=== PATIENT | male | born 1955 | race Caucasian/White ===

== ENCOUNTER 2022-12-25 20:56 | Emergency (ER) | payer OTHER, SELFPAY ==
[2022-12-25] VITALS (7 sets, daily range): BP systolic 112–172; BP diastolic 63–82; PULSE 63–65; RESP 18; TEMP 36.6–37.3; O2SAT 96–98; BMI 40.9
--- NOTE | 2022-12-25 21:24 | ED.GENADULT ---
HPI - General Adult General Time Seen by Provider: 21:24 Date Seen: 12/25/22 Chief complaint: Abdominal Pain Stated complaint: Abdominal Pain Time Seen by Provider: 12/25/22 21:16 Source: patient and RN notes reviewed Mode of arrival: ambulatory Limitations: no limitations History of Present Illness HPI narrative: Patient is a 67-year-old male coming in with right-sided abdominal pain. He initially had an episode on Saturday that lasted about 90 minutes, went away without any intervention. Saturday and Saturday were fine. Around 2:00 p.m. the pain started coming back. Feels that the right abdomen feels like it radiates towards the center of his abdomen. He has a remote history of a varicocele repair but no abdominal surgery ever. He did not feel like eating dinner but otherwise has noted no change in appetite. No nausea vomiting, not nauseated now. He has maybe been going a little less often as far stooling but really does not note any diarrhea or constipation, no blood in stool. He believes he is probably due for his colonoscopy, maybe a little overdue, had polyps with his 1st 1 and is on a 5 year interval. He has noted no urinary changes. A couple weeks ago his urine was dark but he feels he just was not drinking enough. There has been no hematuria. He actually cancel a meeting this evening because of the pain. It has been there and just seems to be getting more intense since earlier. He has not tried anything for it. He has never had a history of kidney stones. Related Data Previous Rx's Medication Instructions Recorded tamsulosin 0.4 mg capsule (Flomax) 0.4 mg PO DAILY #14 caps 12/25/22 Allergies Allergy/AdvReac Type Severity Reaction Status Date / Time No Known Drug Allergies Allergy Verified 12/25/22 21:06 Review of Systems Status of ROS: Reports: 10 or more systems reviewed and unremarkable except as noted in History and below PFSH [facility] Social History Smoking Status: Never smoker Do you use any of these nicotine containing products: None How often do you have a drink containing alcohol: monthly or less AUDIT-C Alcohol total score: 1 Non-prescribed substance use: denies use Exam Const: Vital Signs, click to edit/add: Vital Signs - 24 hr 12/25/22 21:01 12/25/22 21:46 Temperature 99.2 F 99.2 F Pulse Rate [Right Pulse Oximeter] 65 Respiratory Rate 18 Blood Pressure [Ri ght Upper Arm] 172/82 H Pulse Oximetry 98 Oxygen Delivery Me thod Room Air Documenting provider has reviewed patient's vital signs: yes Common normals: no apparent distress, oriented x3, no limitations, healthy appearing, alert and well nourished General appearance: cooperative, comfortable, well kempt and well developed Nutritional appearance: overweight HENMT: Common normals: normocephalic, head/scalp atraumatic, hearing grossly normal bilaterally, external nose normal, nasal mucous membranes and turbinates normal, moist oral mucous membranes, oropharynx normal, dentition normal and gingiva normal Head and scalp: normocephalic and atraumatic Nose: external nose normal and nasal mucous membranes and turbinates normal Eye: Common normals: PERRL, EOMs intact bilaterally, conjunctivae normal and no scleral icterus Conjunctiva: conjunctiva(e) normal Pupil: PERRL Neck & C-Spine: Common normals: full ROM, no lymphadenopathy, supple, no meningeal signs, no JVD and thyroid normal Thyroid: thyroid normal Resp: Common normals: normal respiratory effort, no retractions, no use of accessory muscles and clear to auscultation bilaterally Auscultation: clear to auscultation bilaterally Cardio: Common normals: no JVD, regular rate, regular rhythm, S1 normal heart sound, S2 normal heart sound, no gallops, no clicks, no murmurs and no rub Rate: regular rate Rhythm: regular rhythm Heart sounds: S1 normal and S2 normal GI: Common normals: Normal to inspection, nondistended, normoactive bowel sounds present, soft to palpation, non-tender, no hepatosplenomegaly and no masses Palpation: soft and no hepatosplenomegaly Other: Patient states that may be palpation along the right lateral upper abdominal wall more posterior but overall feels that my palpation of his abdomen and lateral abdominal salmon does not really change the pain. : Common normals: no CVA tenderness Bladder/kidney exam: no CVA tenderness Back & Pelvis: Common normals: no CVA tenderness Extremity: Common normals: no calf tenderness and no pedal edema Neuro: Common normals: oriented x3 Sensorium/orientation: alert Meningeal signs: no meningeal signs Psych: Appearance: well kempt Course Course Hospital Course: Reviewed pain management with patient, will proceed with Toradol 15 mg IV and a L of IV fluids. We will get full complement of labs as well as a urinalysis. We will start with CT abdomen pelvis noncontrast. Kidney stones, possible bowel pathology such as appendicitis maybe right-sided diverticulitis are considered. Will consider acute surgical abdomen, other abdominal etiologies via labs in the CT. We will see how he response to the Toradol. Reevaluation(s) Reevaluation #1: Have reviewed and given the patient a copy of his CT report. He has a 2 mm kidney stone in the right mid ureter. We discussed expectant management. Am going to give him a dose of Flomax 0.4 mg here tonight before discharge. We discussed treatment of the kidney stone. The Toradol has taken away his pain completely. On review of his kidney functions, would not want him taking the Toradol 4 times a day but do think he could probably tolerate up to 3 times a day. Time: 22:55 Vital Signs Vital signs: Initial Vital Signs Temperature 99.2 F 12/25/22 21:01 Temperature Source Temporal Artery Scan 12/25/22 21:01 Pulse Rate 65 12/25/22 21:01 Respiratory Rate 18 12/25/22 21:01 Blood Pressure 172/82 H 12/25/22 21:01 Blood Pressure Mean 112 12/25/22 21:01 Blood Pressure Position Sitting 12/25/22 21:01 Pulse Oximetry 98 12/25/22 21:01 Oxygen Delivery Method 12/25/22 21:01 Vital Signs Temperature 99.2 F 12/25/22 21:01 Pulse Rate 65 12/25/22 21:01 Respiratory Rate 18 12/25/22 21:01 Blood Pressure 172/82 H 12/25/22 21:01 Pulse Oximetry 98 12/25/22 21:01 Oxygen Delivery Method 12/25/22 21:01 Temperature 99.2 F 12/25/22 21:46 Pulse Rate 65 12/25/22 21:01 Respiratory Rate 18 12/25/22 21:01 Blood Pressure 172/82 H 12/25/22 21:01 Pulse Oximetry 98 12/25/22 21:01 Oxygen Delivery Method 12/25/22 21:01 Medical Decision Making Lab Data Lab results reviewed: Yes I reviewed the patient's lab results Labs: Lab Results 12/25/22 12/25/22 12/25/22 Range/Units 21:33 21:38 21:38 WBC 8.78 (4.50-11.00) K/uL RBC 5.01 (4.30-5.90) m/uL Hgb 14.3 (13.5-17.5) gm/dL Hct 42.4 (37.0-53.0) % MCV 85 (80-100) fL MCH 29 (26-34) pg MCHC 34 (32-36) gm/dL RDW Coeff of Tomy 13.4 (11.5-15.5) % Plt Count 276 (140-440) K/uL Neut % (Auto) 79.2 H (42.0-72.0) % Lymph % (Auto) 11.3 L (20-44) % [place] % (Auto) 7.6 (0.0-11.0) % Eos % (Auto) 1.7 (0.0-7.0) % Baso % (Auto) 0.1 (0.0-3.0) % Neut # (Auto) 7.00 (1.7-7.0) K/uL Lymph # (Auto) 1.00 (0.90-2.90) K/uL [place] # (Auto) 0.70 (0.00-0.90) K/UL Eos # (Auto) 0.15 (0.00-0.50) K/uL Baso # (Auto) 0.01 (0.00-0.30) K/uL Sodium 135 (135-149) mmol/L Potassium 4.2 (3.6-5.1) mmol/L Chloride 103 (96-114) mmol/L Carbon Dioxide 26 (20-32) mmol/L BUN 19 (7-30) mg/dL Creatinine 1.4 (0.5-1.5) mg/dL Estimated Creat Clear 54.32 Estimated GFR 56 ml/min Glucose 112 (60-115) mg/dL Calcium 8.7 (8.4-10.6) mg/dL Total Bilirubin 0.7 (0.1-1.5) mg/dL AST 30 (12-35) U/L ALT 36 (4-50) U/L Alkaline Phosphatase 69 (40-150) U/L C-Reactive Protein 1.9 H (0.5-1.0) mg/dL Total Protein 7.4 (6.0-8.3) g/dL Albumin 4.2 (3.3-5.0) g/dL Lipase 42 (23-300) U/L Urine Color Yellow (Yellow) Urine Appearance Clear (Clear) Urine pH 7.0 (5.0-8.5) Ur Specific [place] 1.020 (1.000-1.030) Urine Protein Negative (Negative) Urine Glucose (UA) Negative (Negative) Urine Ketones Negative (Negative) Urine Blood Negative (Negative) Urine Nitrite Negative (Negative) Urine Bilirubin Negative (Negative) Urine Urobilinogen 0.2 (0.2-1.0) Ur Leukocyte Esterase Negative (Negative) Urine RBC 0-2 (0-2) Urine WBC 0-2 (0-5) Ur Squamous Epith Cells None (None-Few) Urine Bacteria None (None) Imaging Data CT scan - abdomen: Attestation: I have reviewed the pertinent imaging results. My impression: I believe I see some hydronephrosis and a stone in the right ureter. Will await Radiology over-read on this CT. Radiologist's impression: Patient: CHRISTOPH WEBB Facility:?[facility] Patient ID:?[id number] Site Patient ID:?[id number]. Site :?[id number] Study:?CT Abdomen/Pelvis W/O-12/25/2022 10:33:30 PM Ordering Physician:Muriel Almendarez Final Report: INDICATION: Intermittent right-sided abdominal pain.. TECHNIQUE: CT abdomen and pelvis without contrast. COMPARISON: None. FINDINGS: Lower chest: The visualized lower lungs are aerated. No pleural or pericardial effusion. ABDOMEN: Liver: Normal attenuation. Gallbladder and biliary: Normal gallbladder without radiopaque stone. Normal caliber bile ducts. Spleen: Normal size and attenuation. Pancreas: The noncontrast pancreas is homogeneous in attenuation without peripancreatic inflammatory changes or ductal dilatation. Adrenal glands: Normal adrenal glands. Kidneys and ureters: Mild right-sided hydroureteronephrosis secondary to a 2 millimeter stone within the mid right ureter. No left-sided hydroureteronephrosis or nephrolithiasis. GI tract: The stomach is relatively decompressed. Normal caliber small and large bowel loops. Normal appendix. Vascular structures: Normal caliber abdominal aorta. Lymph nodes: No lymphadenopathy in the abdomen or pelvis by size criteria. Peritoneum: No free air, free fluid, or focal drainable fluid collection. PELVIS: Genitourinary system: Urinary bladder is decompressed. Normal size prostate. Multiple adjacent calcified pelvic phleboliths. Rectal prostatic calcified granuloma measuring 27 millimeters. SKELETAL STRUCTURES AND SOFT TISSUES: Vertebral body hemangioma. No suspicious lytic or blastic lesions. IMPRESSION: Mild right-sided hydroureteronephrosis secondary to a 2 millimeter stone within the mid right ureter. Please note that all CT scans at this facility use dose modulation, iterative reconstruction, and/or weight-based dosing when appropriate to reduce radiation dose to as low as reasonably achievable. Dictated by Shady Mahoney MD @ 12/25/2022 10:43:31 PM (Electronic Signature) Critical Care Time Critical Care Time Critical Care Time: No Discharge Plan Discharge Clinical Impression: Renal colic on right side Patient Disposition: Home, Self-Care Condition: Stable Instructions: Kidney Stones (ED), Renal Colic (ED) Additional Instructions: Schedule clinic follow-up within 1-2 weeks. If the stone is not passing, may need to be referred to Urology which can be done through your primary clinic but is unlikely with a 2 mm stone. Drink plenty of fluids, including water, for goal of keeping urine clear looking. Tylenol a 1000 mg 3 times a day baseline for pain. Take Flomax daily until the stone has passed. Toradol 10 mg up to 3 times a day if needed for extra pain control. Should your pain management be inadequate, develop vomiting, or have fever develop in the context of a kidney stone, need to return to the ER for further evaluation. Activity Level: Activity as Tolerated Prescriptions: New tamsulosin [Flomax] 0.4 mg capsule 0.4 mg PO DAILY Qty: 14 0RF Follow Up/Referrals: Miyl Borja MD [Primary Care Provider] - Stand Alone Forms: [employer] Info Instructions
--- NOTE | 2022-12-25 21:32 | CRLHL7_ITS ---
For Patients: As a result of the Century Cures Act, medical imaging exams and procedure reports are released immediately into your electronic medical record. You may view this report before your referring provider. If you have questions, please contact your health care provider. INDICATION: Intermittent right-sided abdominal pain.. TECHNIQUE: CT abdomen and pelvis without contrast. COMPARISON: None. FINDINGS: Lower chest: The visualized lower lungs are aerated. No pleural or pericardial effusion. ABDOMEN: Liver: Normal attenuation. Gallbladder and biliary: Normal gallbladder without radiopaque stone. Normal caliber bile ducts. Spleen: Normal size and attenuation. Pancreas: The noncontrast pancreas is homogeneous in attenuation without peripancreatic inflammatory changes or ductal dilatation. Adrenal glands: Normal adrenal glands. Kidneys and ureters: Mild right-sided hydroureteronephrosis secondary to a 2 millimeter stone within the mid right ureter. No left-sided hydroureteronephrosis or nephrolithiasis. GI tract: The stomach is relatively decompressed. Normal caliber small and large bowel loops. Normal appendix. Vascular structures: Normal caliber abdominal aorta. Lymph nodes: No lymphadenopathy in the abdomen or pelvis by size criteria. Peritoneum: No free air, free fluid, or focal drainable fluid collection. PELVIS: Genitourinary system: Urinary bladder is decompressed. Normal size prostate. Multiple adjacent calcified pelvic phleboliths. Rectal prostatic calcified granuloma measuring 27 millimeters. SKELETAL STRUCTURES AND SOFT TISSUES: Vertebral body hemangioma. No suspicious lytic or blastic lesions. IMPRESSION: Mild right-sided hydroureteronephrosis secondary to a 2 millimeter stone within the mid right ureter. Please note that all CT scans at this facility use dose modulation, iterative reconstruction, and/or weight-based dosing when appropriate to reduce radiation dose to as low as reasonably achievable. Dictated by Shady Mahoney MD @ 12/25/2022 10:43:31 PM (Electronically Signed)
[2022-12-25] MEDS: KETOROLAC 15 MG/ML inj IVP (21:46)
[2022-12-25] MEDS: 0.9 % SODIUM CHLORIDE 1000 ml 1,000 ML 500 ML IV (21:46)
[2022-12-25 21:51] LABS: Basophils Absolute Auto 0.01 K/uL (0.00-0.30); Basophils Percent Auto 0.1 % (0.0-3.0); Eosinophils Absolute Auto 0.15 K/uL (0.00-0.50); Eosinophils Percent Auto 1.7 % (0.0-7.0); Hematocrit 42.4 % (37.0-53.0); Hemoglobin* 14.3 gm/dL (13.5-17.5); Immature Granulocytes Abs Auto 0.01 K/uL (0.00-0.30); Immature Granulocytes Pct Auto 0.1 %; Lymphocytes Percent Auto 11.3 % (20-44); Mean Corpuscular HGB Conc 34 gm/dL (32-36); Mean Corpuscular Hemoglobin 29 pg (26-34); Mean Corpuscular Volume 85 fL (80-100); Monocytes Percent Auto 7.6 % (0.0-11.0); Neutrophils Percent Auto 79.2 % (42.0-72.0); Platelet Count* 276 K/uL (140-440); RDW Coefficient of Variation % 13.4 % (11.5-15.5); Red Blood Count 5.01 m/uL (4.30-5.90); Slide Review Reflex No; White Blood Count* 8.78 K/uL (4.50-11.00)
[2022-12-25 22:08] LABS: Albumin* 4.2 g/dL (3.3-5.0); Chloride* 103 mmol/L (96-114)
[2022-12-25 22:09] LABS: Potassium* 4.2 mmol/L (3.6-5.1); Sodium* 135 mmol/L (135-149)
[2022-12-25 22:11] LABS: Creatinine* 1.4 mg/dL (0.5-1.5); Est. Creatinine Clearance* 54.32; Estimated Glomerular Filt Rate 56 ml/min
[2022-12-25 22:12] LABS: Alanine Aminotransferase* 36 U/L (4-50); Alkaline Phosphatase* 69 U/L (40-150); Aspartate Amino Transferase* 30 U/L (12-35); Bilirubin Total* 0.7 mg/dL (0.1-1.5); Blood Urea Nitrogen* 19 mg/dL (7-30); Calcium* 8.7 mg/dL (8.4-10.6); Carbon Dioxide* 26 mmol/L (20-32); Glucose* 112 mg/dL (60-115); Lipase* 42 U/L (23-300); Total Protein* 7.4 g/dL (6.0-8.3)
[2022-12-25 22:15] LABS: Appearance Urine Clear (Clear); Bilirubin Urine Negative (Negative); Blood Urine Negative (Negative); Color Urine Yellow (Yellow); Glucose Urine Negative (Negative); Ketones Urine Negative (Negative); Leukocyte Esterase Urine Negative (Negative); Nitrite Urine Negative (Negative); Protein Urine Negative (Negative); Urobilinogen Urine 0.2 (0.2-1.0)
[2022-12-25 22:17] LABS: RBC Urine 0-2 (0-2); WBC Urine 0-2 (0-5)
[2022-12-25 22:21] LABS: C Reactive Protein* 1.9 mg/dL (0.5-1.0)
[2022-12-25] MEDS: TAMSULOSIN HCL 0.4 MG CAPSULE PO (23:06)
== END 2022-12-25 23:20 | disposition home or self-care (01) ==
PROVIDERS: Emergency Provider Family Medicine; PCP Internal Medicine
DX: N23 Unspecified renal colic (principal)
CPT/HCPCS: 36415; 74176; 80053; 81001; 83690; 85025; 86140; 94761; 96374; 99284; 99285; A9270; J1885; J7030

== ENCOUNTER 2023-01-22 08:18 | Outpatient (CLI) | payer OTHER, SELFPAY ==
[2023-01-22 09:55] LABS: Cholesterol* 174 mg/dL (90-199); Glucose* 86 mg/dL (60-115); HDL Cholesterol* 59 mg/dL (>=40); LDL Cholesterol Calculated 96 mg/dL (<100); Triglycerides* 95 mg/dL (40-149)
== END 2023-01-22 08:19 | disposition home or self-care (01) ==
PROVIDERS: PCP Internal Medicine; Visit Provider Internal Medicine
DX: Z13.1 Encounter for screening for diabetes mellitus (principal); Z13.6 Encounter for screening for cardiovascular disorders
CPT/HCPCS: 80061; 82947

== ENCOUNTER 2023-02-15 09:14 | Outpatient (CLI) | payer OTHER, SELFPAY | END 2023-02-15 09:15 | disposition home or self-care (01) | PROVIDERS: PCP Internal Medicine; Visit Provider Internal Medicine | DX: Z12.11 Encounter for screening for malignant neoplasm of colon (principal); Z86.010 Personal history of colon polyps | CPT/HCPCS: 45378; J2250; J3010 ==

== ENCOUNTER 2024-07-28 08:58 | Outpatient (CLI) | payer OTHER, SELFPAY ==
--- OUTSIDE RECORDS SUMMARY | 2024-07-28 09:12 | XMS_ITS | Clinical Summary ---
Author Organization [facility] Address [place], [place] [address] Care Team Providers Care Box Toe Cementer Name Role Phone Mily Borja MD Primary Care Provider [phone]- [phone] Encounters Date Type Department Care Team Description 07/15/2024 2:30 PM CDT Ancillary Procedure [facility] [address] [place] [address] 07/15/2024 Travel 07/07/2024 Orders Only [facility] [address] [place] [address] Self, Referral <No scans attached> from Last 3 Months Immunizations Name Administration Dates Next Due Influenza, IIV4 11/30/2017 Social History Tobacco Use Types Packs/Day Years Used Date Smoking Tobacco: Never Assessed Sex and Gender Information Value Date Recorded Sex Assigned at Not on file Gender Identity Not on file Sexual Orientation Not on file Plan of Treatment Health Maintenance Due Date Last Done Comments Tdap 1968 Depression screening for age 12+ 1969 BMI (ht and wt on same day) for age 18+ 1975 Hepatitis C screening for ag e 18-79 1975 Tetanus booster 1977 Colonoscopy through age 75 2002 Lipids for age 45-75 2002 Zoster (shingles) series for age 50+ (1 of 2) 2007 Pneumococcal series for age 65+ (1 of 1 - PCV) 2022 COVID-19 vaccine series (2022-24 season) 2024 10/01/2022, 04/10/2022, 10/26/2021, Additional history exists Influenza for age 65+ 07/26/2024 11/30/2017 Procedures Procedure Name Priority Date/Time Associated Diagnosis Comments CT CARDIAC CALCIUM SCORE ONLY WO SINGLE READ Routine 07/15/2024 2:37 PM CDT Self-referral from Last 3 Months Results * CT CARDIAC CALCIUM SCORE ONLY WO SINGLE READ (07/15/2024 2:37 PM CDT) Anatomical Region Laterality Modality Computed Tomogra phy Narrative 07/16/2024 6:54 PM CDT For Patients: As a result of the Cures Act, medical imaging exams and procedure reports are released immediately into your electronic medical record. ??You may view this report before your referring provider. ?? If you have questions, please contact your health care provider. CT CARDIAC CALCIUM SCORING, 07/15/2024 PATIENT HISTORY: Self-referral. REPORT: High-resolution, ECG-synchronized non-contrast computed tomography of the heart with attention to the coronary arteries was performed. Coronary calcification analyzed using Siemens calcium scoring software. These are the results of the evaluation. CT Calcium Scoring: This cardiac CT examination will provide you with a coronary artery calcium score. A coronary artery calcium score is a measurement of the amount of calcified plaque in the coronary arteries, the arteries that supply blood to the heart muscle. The coronary artery calcium score is calculated based on the number, size, and density of the calcified plaques in the coronary arteries. The amount of calcified coronary plaque has been shown to directly correlate with future risk for heart disease. The coronary artery calcium is a marker of how much plaque has accumulated in the salmon of the coronary arteries. It is not a test for blockages. This test is intended to assess cardiovascular risk in patients without symptoms. It is not intended to be a test for individuals with chest pain or other possible symptoms suggestive of heart disease. If you are having chest pain or other potential cardiovascular symptoms, see your physician. Calcium Score: Left main = 0 Left anterior descending = 414 Left circumflex = 45 Right coronary artery = 29 Total calcium score = 488 This places the patient at the 80th percentile for matched age and gender. Calcified Plaque Seen Assessment: ? ? Your cardiac CT examination demonstrates plaque in the coronary arteries. ? ? The amount of plaque in the coronary arteries directly correlates with the risk for heart attack and other coronary events (such as bypass or stenting). ? ? As discussed above, the coronary artery calcium score is intended for risk assessment in patients without cardiovascular symptoms. If you are having chest pain or other potential cardiovascular symptoms, see your physician. Recommendations: ? ? To lower your cardiovascular risk, we strongly recommend adherence to healthy lifestyle behaviors including: ?Following a heart healthy diet focused on modest portion sizes, a high intake of fresh fruits and vegetables, whole grains, healthy fats (olive oil, nuts and seeds, avocados), and healthy proteins (unprocessed meats, fish, legumes). ? Following an active lifestyle including 30-45 minutes of moderate intensity exercise 5-6 times per week. ?Avoidance of tobacco products. ? ? Cardiovascular preventive medication, including a daily aspirin and cholesterol-lowering statin medications have been shown to reduce the risk of a future heart attack and stroke, especially in individuals at higher risk for heart disease. ? ? We recommend that individuals with calcified plaque discuss the risks and benefits of cholesterol-lowering medications, blood pressure medications, and aspirin with their primary care physician. Cholesterol-lowering medications have been shown to reduce the risk of heart attack in individuals at elevated risk, including in patients with ? normal? cholesterol levels at baseline. ? ? A coronary artery calcium score is not a test for blockages, it is a test for underlying plaque. An elevated calcium score is not an indication for additional testing for coronary heart disease though one may be considered based on your clinical history. The results of your coronary artery calcium score should be reviewed by your primary care provider or parts back counter man. ? ? These recommendations are generalized and may not specifically apply to you as an individual. Your primary care physician is in the best position to provide advice on your care and clinical decisions should ultimately be made by you and your physician. EXTRACARDIAC STRUCTURES: ??There are no acute or suspicious extracardiac imaging abnormalities. Please note that all CT scans at this facility use dose modulation, iterative reconstruction and/or weight-based dosing when appropriate to reduce radiation dose to as low as reasonably achievable. ?? Arturo Jaramillo M.D. Pediatric/Diagnostic Radiologist Cardioth[email or web address]/sp / ?? Referral Self CT from Last 3 Months Care Teams Box Toe Cementer Relationship Specialty Start Date End Date Mily Borja MD [address] [place] [address] PCP - General Internal Medicine 07/15/24
== END 2024-07-28 08:59 | disposition home or self-care (01) ==
PROVIDERS: PCP Internal Medicine; Visit Provider Internal Medicine
DX: N52.9 Male erectile dysfunction, unspecified (principal); Z12.5 Encounter for screening for malignant neoplasm of prostate; Z13.220 Encounter for screening for lipoid disorders
CPT/HCPCS: 80061; G0103

== ENCOUNTER 2024-08-21 11:00 | Outpatient (CLI) | payer OTHER, SELFPAY ==
[2024-08-21 10:02] VITALS: BMI 40.8
--- OUTSIDE RECORDS SUMMARY | 2024-08-25 08:56 | XMS_ITS | Clinical Summary ---
Author Organization [facility] [facility] Address [place], [place] [address] Care Team Providers Care Quality Process Auditor Name Role Phone Mily Borja MD Primary Care Provider [phone]- [phone] Encounters Date Type Department Care Team Description 07/15/2024 2:30 PM CDT Ancillary Procedure [facility] [address] [place] [address] 07/15/2024 Travel 07/07/2024 Orders Only [facility] [address] [place] [address] Self, Referral <No scans attached> from Last [...] 1 - PCV) 2022 COVID-19 vaccine series (2023- season) 2024 10/01/2022, 04/10/2022, 10/26/2021, Additional history [...] reviewed by your primary care provider or electron gun assembler. ? ? These recommendations are generalized and [...] CT from Last 3 Months Care Teams Quality Process Auditor Relationship Specialty Start Date End Date Mily Borja MD [address] [place] [address] PCP - General Internal Medicine 07/15/24
--- OUTSIDE RECORDS SUMMARY | 2024-08-25 08:56 | XMS_ITS | Data Portability ---
Author Organization [place] [facility] Address [address] [place] [address] Care Team Providers Care Staff Mechanical Engineer Name Role Phone MARINO CARTER Primary Care Provider Assessment No assessment recorded. Plan of Treatment Reminders Order Date Submit Date Provider Last Modified By Organization Details Last Modified Time Details Appointments None recorde d. Lab testost erone, total, serum - Prior to 11 AM 023 023 [facility] [place] [facility], [address] [place], [address], 08:58:52 Referral None recorde d. Procedures None recorde d. Surgeries None recorde d. Imaging None recorde d. Medication Orders None recorde d. Patient TargetsNo targets recorded. Patient Instructions Encounter Date Encounter Id Patient Instructions Last Modified By Organization Details Last Modified Time 04/15/2023 [id number] 67 y/o male presents for an ED evaluation Educated on etiology of ED (hormonal, nerve function, blood supply, psychological, medications). Discussed diagnostics such as penile US and testosterone labs. Patient interested in testosterone labs. Educated on treatment options such as PDE-5 inhibitors, penile injections, muse, vacuum erection device (LOUIE), and penile implant (IPP). Re-trial of Tadalafil since he has lost weight. His PCP provided patient with prescription. He will contact office with an update. Discussed trial of Vardenafil if Tadalafil ineffective. Provided hand out on penile self injections. [email or web address] Not available 04/15/2023 14:32:42 Reason for Referral None Reported. Procedures Surgical History Date Name Laterality Status Provider Name and Address Organization Details Recorded Time Colonoscopy completed Isaiah Espinoza [facility] 04/15/2023 14:10:16 Imaging Results None recorded. Procedure Notes None recorded. Medical Equipment None Reported. Allergies No known drug allergies Medications Name Sig Start Date Stop Date Status Note LastModified by Organization Details LastModified Time ketorolac 10 mg tablet 2022 completed Not Available Not Available Not Available tamsulosin 0.4 mg capsule 2022 completed Not Available Not Available Not Available tadalafil 10 mg tablet 2022 completed Not Available Not Available Not Available GaviLyte-G 236 gram-22.74 gram-6.74 gram-5.86 gram oral solution 2022 completed Not Available Not Available Not Available Vitals Date Recorded Body height Body mass index (BMI) Body weight Provider Name and Address Organization Details Last Updated DateTime 04/15/2023 177.8 cm 41.6 kg/m2 827283.79 g Isaiah Espinoza [facility] 04/15/2023 14:08:56 Social History Question Answer Notes LastModified by Organizat ion Details LastModified Time Tobacco Smoking Status [facility] 04/15/2023 14:09:39 What Is Your Level Of Alcohol Consumption? Occasional Information not available 04/15/2023 What Is Your Level Of Caffeine Consumption? Moderate Information not available 04/15/2023 Race White Information no t available 04/15/2023 Ethnicity Not /Latin o Information not available 04/15/2023 Preferred Language Scottish Information not available 04/15/2023 Recreational Drug Use No Information not available 04/15/2023 What Was The Date Of Your Most Recent Tobacco Screening? 04/15/2023 Information not available 04/15/2023 What Is Your Relationship Status? Information not available 04/15/2023 Are You Sexually Active? Yes Information not available 04/15/2023 Do You Use Any Illicit Or Recreational Drugs? No Information not available 04/15/2023 Has Tobacco Cessation Counseling Been Provided? No Information not available 04/15/2023 Do You Or Have You Ever Used Any Other Forms Of Tobacco Or Nicotine? No Information not available 04/15/2023 Sex: Unknown Functional Status None recorded. Mental Status None recorded. Family History Nothing Reported. Medical History No medical history recorded. Past Encounters Encounter ID Performer Location Encounter Start Date Encounter Closed Date Diagnosis/Indication Diagnosis SNOMED-CT Code Diagnosis ICD10 Code [id number] KATRINA JEAN [facility] [address] [place] [address],[address] [place] [address] 04/15/2023 14:02:21 04/15/2023 14:33:22 Primary erectile dysfunction 445089728 N52.9 Health Concerns Section Related Observation LastModified by Organization Detai ls LastModified Time None Recorded Concern Status LastModified by Organization Details LastModified Time None Recorded Advance Directives Directive None Recorded Payers Encounter Date Sequence Insurance Name Policy Number Policy Galvez Covered Member ID Galvez Member ID Guarantor Name 04/15/2023 1 [employer] (MEDICARE REPLACEMENT/ ADVANTAGE - PPO) [id number] Travis Navarro [id number] Travis Navarro Notes Date Note Type Note Provider Name and Address Organization Details Recorded Time 04/15/2023 text/html HPI Notes: Erect ile Dysfunction Reported by patient. Notes: 67 y/o male presents for an evaluation of erectile dysfunction (ED). He reports difficulty with erections for the past 10+ years. No preceding event he can associate to the development of ED. Gradual decline in erectile function since initial onset. He has tried Tadalafil and Sildenafil intermittently over the years with limited effectiveness. No side effects noted with either medication. He has been working on weight loss the past 3-4 months which he hopes help with erectile function. He is able to achieve a borderline ehs of 3 with inadequate maintenance. No pain or curvature to penis with erections. Good libido and energy. Denies HTN, high cholesterol, diabetes, and CAD. KATRINA JEAN [address], [place], [address], [facility] 04/15/2023 14:32:51
== END 2024-08-21 11:01 | disposition home or self-care (01) ==
LOC: NUTRITION 08-25 08:54
PROVIDERS: PCP Internal Medicine; Visit Provider Dietitian, Registered
DX: E66.01 Morbid (severe) obesity due to excess calories (principal); Z71.3 Dietary counseling and surveillance
CPT/HCPCS: G0463

== ENCOUNTER 2024-09-18 09:34 | Outpatient (CLI) | payer OTHER, SELFPAY ==
--- OUTSIDE RECORDS SUMMARY | 2024-09-18 09:36 | XMS_ITS | Clinical Summary ---
Author Organization [employer] [facility] Address [place], [place] [address] Care Team Providers Care Pain Coordinator Name Role Phone Mily Borja MD Primary Care Provider [phone]- [phone] Encounters Date Type Department Care Team Description 07/15/2024 2:30 PM CDT Ancillary Procedure [facility] [address] [place] [address] 07/15/2024 Travel 07/07/2024 Orders Only [facility] [address] [place] [address] Self, Referral <No scans attached> from Last [...] reviewed by your primary care provider or emergency management specialist. ? ? These recommendations are generalized and [...] CT from Last 3 Months Care Teams Pain Coordinator Relationship Specialty Start Date End Date Mily Borja MD [address] [place] [address] PCP - General Internal Medicine 07/15/24
--- OUTSIDE RECORDS SUMMARY | 2024-09-18 09:36 | XMS_ITS | Data Portability ---
Author Organization [place] [facility], [facility] Address [address] [place] [address] Care Team Providers Care Economics Department Chair Name Role Phone MARINO CARTER Primary Care Provider [phone] Assessment No assessment recorded. Plan of Treatment Reminders Order Date Submit Date Provider Last Modified By Organization Details Last Modified Time Details Appointments None recorde d. Lab testost erone, total, serum - Prior to [address] [facility], [address] [place], [address], 08:58:52 Referral None recorde d. Procedures None recorde d. Surgeries None recorde d. Imaging None recorde d. Medication Orders None recorde d. Patient TargetsNo targets recorded. Patient Instructions Encounter Date Encounter Id Patient Instructions Last Modified By Organization Details Last Modified Time 04/15/2023 [id number] 67 y/o male presents for an ED [...] Details Recorded Time Colonoscopy completed Isaiah Espinoza [facility] 04/15/2023 14:10:16 Imaging Results None recorded. [...] Updated DateTime 04/15/2023 177.8 cm 41.6 kg/m2 558652.79 g Isaiah Espinoza [facility] 04/15/2023 14:08:56 Social History Question Answer Notes LastModified by Organizat ion Details LastModified Time Tobacco Smoking Status [facility] 04/15/2023 14:09:39 What Is Your Level Of Alcohol Consumption? Occasional Information not available 04/15/2023 What Is Your Level Of Caffeine Consumption? Moderate Information not available 04/15/2023 Race White Information no t available 04/15/2023 Ethnicity Not /Latin o Information not available 04/15/2023 Preferred Language Pashto Information not available 04/15/2023 Recreational Drug Use [...] Diagnosis/Indication Diagnosis SNOMED-CT Code Diagnosis ICD10 Code [id number] KATRINA JEAN [facility] [address] [place] [address],[address] [place] [address] 04/15/2023 14:02:21 04/15/2023 14:33:22 Primary erectile dysfunction 357304720 N52.9 Health Concerns Section Related Observation LastModified by Organization Detai ls LastModified Time None Recorded Concern Status LastModified by Organization Details LastModified Time None Recorded Advance Directives Directive None Recorded Payers Encounter Date Sequence Insurance Name Policy Number Policy Galvez Covered Member ID Galvez Member ID Guarantor Name 04/15/2023 1 [employer] (MEDICARE REPLACEMENT/ ADVANTAGE - PPO) [id number] Travis Navarro [id number] Travis Navarro Notes Date Note Type Note [...] cholesterol, diabetes, and CAD. KATRINA JEAN [address], [place], [address], [facility] 04/15/2023 14:32:51
[2024-09-18 12:13] VITALS: BMI 39.2
== END 2024-09-18 09:35 | disposition home or self-care (01) ==
LOC: NUTRITION 09:34
PROVIDERS: PCP Internal Medicine; Visit Provider Dietitian, Registered
DX: E66.9 Obesity, unspecified (principal); Z71.3 Dietary counseling and surveillance
CPT/HCPCS: G0463

== ENCOUNTER 2024-11-06 14:01 | Outpatient (CLI) | payer OTHER, SELFPAY ==
[2024-11-06 11:49] VITALS: BMI 39.9
== END 2024-11-06 14:02 | disposition home or self-care (01) ==
LOC: NUTRITION 14:01
PROVIDERS: PCP Internal Medicine; Visit Provider Dietitian, Registered
DX: E66.9 Obesity, unspecified (principal); Z71.3 Dietary counseling and surveillance
CPT/HCPCS: G0463

== ENCOUNTER 2024-11-30 09:32 | Outpatient (CLI) | payer MEDICARE, SELFPAY | END 2024-11-30 09:33 | disposition home or self-care (01) | LOC: NFLDREF 12-01 03:01 | PROVIDERS: PCP Internal Medicine; Referring Provider Internal Medicine; Visit Provider Internal Medicine | DX: R93.1 Abnormal findings on diagnostic imaging of heart and coronary circulation (principal); Z13.6 Encounter for screening for cardiovascular disorders | CPT/HCPCS: 80061 ==

== ENCOUNTER 2024-12-04 08:00 | Outpatient (CLI) | payer MEDICARE, SELFPAY ==
--- OUTSIDE RECORDS SUMMARY | 2024-11-26 10:33 | XMS_ITS | Clinical Summary ---
Author Organization [facility] Address [place], [place] [address] Care Team Providers Care Insurance Salesperson Name Role Phone Mily Borja MD Primary Care Provider +1- [phone] Immunizations Name Administration Dates Next Due Influenza, IIV4 11/30/2017 Social History Tobacco Use Types Packs/Day Years Used Date Smoking Tobacco: Never Assessed Sex and Gender Information Value Date Recorded Sex Assigned at Not on file Legal Sex Male 7:53 AM [employer] Gender Identity Not on file Sexual Orientation Not on file Plan of Treatment Health Maintenance Due Date Last Done Comments Tdap 1968 Depression screening for age 12+ 1969 BMI (ht and wt on same day) for age 18+ 1975 Hepatitis C screening for ag e 18-79 1975 Tetanus booster 1977 Colonoscopy through age 75 2002 Lipids for age 45-75 2002 Pneumococcal series for age 50+ (1 of 1 - PCV) 2007 Zoster (shingles) series for age 50+ (1 of 2) 2007 COVID-19 vaccine series (2023- season) 2024 10/01/2022, 04/10/2022, 10/26/2021, Additional history exists Influenza for age 65+ 07/26/2024 11/30/2017 RSV vaccine for adults or (1 - 1-dose 75+ series) 2032 Insurance MED[employer] Care Teams Insurance Salesperson Relationship Specialty Start Date End Date Mily Borja MD [address] [place] [address] PCP - General Internal Medicine 07/15/24
[2024-12-04 09:44] VITALS: BMI 39.7
== END 2024-12-04 08:01 | disposition home or self-care (01) ==
LOC: NUTRITION 08:00
PROVIDERS: PCP Internal Medicine; Visit Provider Dietitian, Registered
DX: E66.9 Obesity, unspecified (principal); Z71.3 Dietary counseling and surveillance
CPT/HCPCS: G0463